=== PATIENT | male | born 1960 | race Caucasian/White ===

== ENCOUNTER → 2017-08-05 07:06 | Outpatient (CLI) | payer BC, SELFPAY ==
[2017-08-05 08:17] LABS: Alanine Aminotransferase 37 IU/L (21-72); Albumin 4.1 g/dL (3.5-5.0); Albumin Globulin Ratio 1.5 (1.0-2.8); Alkaline Phosphatase 49 U/L (38-126); Aspartate Aminotransferase 20 IU/L (17-59); BUN Creatinine Ratio 22.2 (6-22); Bilirubin Total 0.7 mg/dL (0.2-1.3); Blood Urea Nitrogen 20 mg/dL (9-20); Calcium 9.5 mg/dL (8.4-10.2); Carbon Dioxide 30 mmol/L (22-32); Chloride 103 mmol/L (98-107); Cholesterol 150 mg/dL (140-199); Estimated Glomerular Filt Rate > 60.0 mL/min (>60); Globulin 2.7 g/dL (1.7-4.1); Glucose 105 mg/dL (70-100); HDL Cholesterol 52 mg/dL (40-60); HEMOLYSIS < 15 (0-50); LDL Cholesterol Calculated 70 mg/dL (<100); Sodium 141 mmol/L (137-145); Total Protein 6.8 g/dL (6.3-8.2); Triglycerides 140 mg/dL (35-150)
== END ==
PROVIDERS: PCP Family Medicine; Visit Provider Family Medicine
DX: I25.10 Atherosclerotic heart disease of native coronary artery without angina pectoris (principal); Z12.5 Encounter for screening for malignant neoplasm of prostate
CPT/HCPCS: 36415; 80053; 80061; G0103

== ENCOUNTER → 2017-09-20 08:41 | Outpatient (CLI) | payer BC, SELFPAY ==
--- NOTE | 2017-09-20 | DI.RAD.S_ITS ---
PROCEDURE: XR CHEST 2V INDICATIONS: HEART DISEASE, PRE OP FOR SURGERY TECHNIQUE: 2 views of the chest were acquired. COMPARISON: [facility], , CHEST 2 VIEW, 08/17/2013, 13:33. FINDINGS: Surgical changes and devices: None. Lungs and pleura: No pleural effusions or pneumothorax. Lungs are clear. Mediastinum: Mediastinal contours are normal. Heart size is normal. Bones and chest wall: No suspicious bony abnormalities. Thoracic spondylosis. Soft tissues appear unremarkable. IMPRESSION: No acute cardiopulmonary abnormality Dictated by: Bethel Segovia M.D. on 09/20/2017 at 10:00 Approved by: Bethel Segovia M.D. on 09/20/2017 at 10:01
[2017-09-20 10:28] LABS: Hematocrit 41.7 % (41-53); Hemoglobin 14.6 g/dL (13.5-17.5); Mean Corpuscular Hemoglobin 31.8 PG (26-34); Mean Corpuscular Volume 90.8 fL (80-100); Platelet Count 189 X10^3/uL (150-400); Red Blood Cell Count 4.59 X10^6/uL (4.5-5.9); White Blood Cell Count 5.8 X10^3/uL (4.5-11.0)
[2017-09-20 10:48] LABS: HEMOLYSIS < 15 (0-50); Iron 94 ug/dL (49-181)
[2017-09-20 10:54] LABS: Alanine Aminotransferase 34 IU/L (21-72); Albumin 4.2 g/dL (3.5-5.0); Albumin Globulin Ratio 1.5 (1.0-2.8); Alkaline Phosphatase 47 U/L (38-126); Aspartate Aminotransferase 24 IU/L (17-59); Bilirubin Total 0.5 mg/dL (0.2-1.3); Blood Urea Nitrogen 18 mg/dL (9-20); Calcium 9.5 mg/dL (8.4-10.2); Carbon Dioxide 30 mmol/L (22-32); Chloride 102 mmol/L (98-107); Cholesterol 172 mg/dL (140-199); Estimated Glomerular Filt Rate > 60.0 mL/min (>60); Globulin 2.8 g/dL (1.7-4.1); Glucose 105 mg/dL (70-100); HDL Cholesterol 55 mg/dL (40-60); HEMOLYSIS < 15 (0-50); Hemoglobin A1C% w Est Avg Glu 5.1 % (4.0-6.0); LDL Cholesterol Calculated 87 mg/dL (<100); Potassium 3.9 mmol/L (3.4-5.1); Sodium 140 mmol/L (137-145); Triglycerides 152 mg/dL (35-150)
[2017-09-20 10:58] LABS: C-Reactive Protein Quant < 0.5 mg/dL (<1.0)
[2017-09-20 11:00] LABS: Percent Iron Saturation 33 % (20-50); Total Iron Binding Capacity 285 ug/dL (261-462); Transferrin 227 mg/dL (206-381)
[2017-09-20 11:20] LABS: Thyroid Stimulating Hormone 2.32 uIU/mL (0.47-4.68)
[2017-09-20 11:26] LABS: Ferritin 59.7 ng/mL (17.9-464)
[2017-09-20 11:56] LABS: Folate > 20.0 ng/mL (2.76-20.0); Vitamin B12 561 pg/mL (239-931)
[2017-09-22 15:33] LABS: C Peptide 3.46 ng/mL (0.80-3.85); Insulin Level Total 6.8 uIU/mL (2.0-19.6)
[2017-09-22 17:20] LABS: Zinc 112 mcg/dL (60-130)
[2017-09-23 20:26] LABS: Vitamin A 76 mcg/dL (38-98)
[2017-09-26 13:30] LABS: Vitamin B1 37
[2017-09-26 13:32] LABS: Testosterone, Total 540; Testosterone,Free 72.5
[2017-09-26 13:33] LABS: Sex Hormone Binding Globulin 34; Testosterone, Bioavailable 145.9
[2017-09-26 13:34] LABS: Albumin 4.4
== END ==
PROVIDERS: PCP Family Medicine; Visit Provider Surgery
DX: E66.01 Morbid (severe) obesity due to excess calories (principal); I10 Essential (primary) hypertension; E78.5 Hyperlipidemia, unspecified; I51.9 Heart disease, unspecified; G47.30 Sleep apnea, unspecified; J44.9 Chronic obstructive pulmonary disease, unspecified; I87.2 Venous insufficiency (chronic) (peripheral)
CPT/HCPCS: 36415; 71046; 80053; 80061; 82040; 82306; 82607; 82728; 82746; 83036; 83525; 83540; 83550; 84270; 84403; 84425; 84443; 84590; 84630; 84681; 85025; 85027; 86140

== ENCOUNTER → 2018-06-02 08:00 | Outpatient (CLI) | payer BC, SELFPAY ==
[2018-06-02 09:02] LABS: Hematocrit 39.8 % (41-53); Hemoglobin 13.9 g/dL (13.5-17.5); Mean Corpuscular Hemoglobin 30.9 PG (26-34); Mean Corpuscular Volume 88.5 fL (80-100); Platelet Count 190 X10^3/uL (150-400); Red Cell Distribution Width 13.7 % (11.6-14.8); White Blood Cell Count 3.4 X10^3/uL (4.5-11.0)
[2018-06-02 09:25] LABS: HEMOLYSIS < 15 (0-50); Iron 112 ug/dL (49-181)
[2018-06-02 09:31] LABS: Alanine Aminotransferase 34 IU/L (21-72); Albumin 4.3 g/dL (3.5-5.0); Albumin Globulin Ratio 1.8 (1.0-2.8); Alkaline Phosphatase 47 U/L (38-126); Aspartate Aminotransferase 25 IU/L (17-59); BUN Creatinine Ratio 31.4 (6-22); Bilirubin Total 0.6 mg/dL (0.2-1.3); Blood Urea Nitrogen 22 mg/dL (9-20); Calcium 9.6 mg/dL (8.4-10.2); Carbon Dioxide 30 mmol/L (22-32); Chloride 101 mmol/L (98-107); Cholesterol 144 mg/dL (140-199); Estimated Glomerular Filt Rate > 60.0 mL/min (>60); Globulin 2.4 g/dL (1.7-4.1); Glucose 97 mg/dL (70-100); HDL Cholesterol 47 mg/dL (40-60); HEMOLYSIS < 15 (0-50); LDL Cholesterol Calculated 76 mg/dL (<100); Sodium 139 mmol/L (137-145); Total Protein 6.7 g/dL (6.3-8.2); Triglycerides 107 mg/dL (35-150)
[2018-06-02 09:38] LABS: Percent Iron Saturation 43 % (20-50); Total Iron Binding Capacity 258 ug/dL (261-462); Transferrin 191 mg/dL (206-381)
[2018-06-02 09:40] LABS: Vitamin D 25 Hydroxy (D3) 36.8 ng/mL (30.0-100.0)
[2018-06-02 10:28] LABS: Vitamin B12 650 pg/mL (239-931)
[2018-06-05 14:00] LABS: Vitamin A 54 mcg/dL (38-98)
[2018-06-06 09:07] LABS: Sex Hormone Binding Globulin 78 nmol/L (22-77); Testosterone, Bioavailable 86.1 ng/dL (110.0-575.0); Testosterone, Total 690 ng/dL (250-1100); Testosterone,Free 44.7 pg/mL (46.0-224.0)
[2018-06-06 15:51] LABS: Zinc 96 mcg/dL (60-130)
[2018-06-06 16:47] LABS: Vitamin B1 142 nmol/L (78-185)
[2018-06-12 13:25] LABS: Albumin 4.2
== END ==
PROVIDERS: PCP Family Medicine; Visit Provider Surgery
DX: K21.9 Gastro-esophageal reflux disease without esophagitis (principal); I10 Essential (primary) hypertension; G47.30 Sleep apnea, unspecified; Z98.84 Bariatric surgery status; K91.2 Postsurgical malabsorption, not elsewhere classified; E88.81 Metabolic syndrome and other insulin resistance
CPT/HCPCS: 36415; 80053; 80061; 82040; 82306; 82607; 82728; 82746; 83036; 83540; 83550; 84270; 84403; 84425; 84590; 84630; 85027

== ENCOUNTER 2018-08-17 06:40 | Day surgery (SDC) | payer BC, SELFPAY ==
--- NOTE | 2018-08-17 | PATH_ITS ---
[facility] Accession Number: [id number] . 01 Material submitted: . rectum - RECTAL POLYP . 01 Clinical history: . SCREENING COLONOSCOPY . 02 Diagnosis: Biopsy, Rectal Polyp: Changes consistent with hyperplastic polyp. MRV/08/21/2018 . 02 Electronically signed: . Benny Bianchi MD, Pathologist NPI- [id number] . 01 Gross description: . RECTAL POLYP: Received in formalin is 1 fragment(s) of zuñiga, soft tissue measuring 0.5 x 0.3 x 0.3 cm submitted entirely in 1 cassette(s) /CKI /CKI . 02 Pathologist provided ICD-10: K62.1 . 02 CPT . 096091 Performed at: 01 [facility] [address] [place] [address], [place], [place] [id number] MD Gordon Solis MD Phone: [phone] Performed at: 02 [facility] [address] [place], [place] [id number] MD Nadia Nicolas MD Phone: [phone]
[2018-08-17 07:08] VITALS: BP 103/61; PULSE 48; RESP 15; TEMP 36.3; O2SAT 95; BMI 27.6
[2018-08-17] MEDS: SODIUM CHLORIDE 0.9% 1,000 ML 200 ML IV (07:19)
--- NOTE | 2018-08-17 07:44 | PM.HP.1 ---
History of Present Illness Date Patient Seen: 08/17/18 Time Patient Seen: 07:44 Chief complaint: [id number] SCREENING COLONOSCOPY Narrative: 58-year-old man seen and examined Health unchanged since recent clinic note Plan for screening colonoscopy today, last colonoscopy 3 years ago very poor prep hence short interval follow-up All questions answered Patient History Family & Social History Social History: household members spouse Tobacco & Substance use: Smoking Status Former smoker alcohol intake never Meds Home Medications Medication Instructions Recorded Confirmed Type aspirin 81 mg PO QDAY #0 05/27/16 08/17/18 History compression stocking,knee #12 each 08/21/17 07/18/18 Rx high,long length,large circum lisinopril 5 mg tablet 5 mg PO QDAY #60 tab 11/07/17 08/17/18 Rx atenolol 25 mg tablet 25 mg PO QDAY #90 tab 02/01/18 08/17/18 Rx rosuvastatin 40 mg tablet 40 mg PO DAILY #90 tab 04/17/18 08/17/18 Rx fekxepxl-vbk-cprgl acid 0.4 1 tab PO DAILY 07/18/18 08/17/18 History mg-lycopene 300 mcg-lutein 250 mcg tablet varenicline [Chantix Continuing 1 mg PO DAILY 08/17/18 08/17/18 History Month Box] Allergies Allergy/AdvReac Type Severity Reaction Status Date / Time codeine AdvReac Mild VOMITING Verified 08/17/18 07:04 Exam Vital Signs (past 8 hours): - 08/17/18 07:08 Temperature 97.4 F L Pulse Rate 48 L Respiratory Rate 15 Blood Pressure 103/61 Pulse Oximetry 95 Oxygen Delivery Method Room Air
[2018-08-17] MEDS: fentaNYL 250 MCG/5 ML INJ IV (08:35)
[2018-08-17] MEDS: MIDAZOLAM 5 MG/5 ML VIAL IV (08:36)
--- NOTE | 2018-08-17 08:36 | PM.OP.ENDO ---
Operative Date/Time/Diagnoses Date of procedure: 08/17/18 Time of procedure: 08:36 Pre-op diagnosis: Screening colonoscopy Post-op diagnosis: same Procedure & Clinicians Study performed: Screening colonoscopy -complete but with inadequate prep Same procedure as scheduled: Yes Indications: 58-year-old man 3 years out from last screening colonoscopy which had inadequate prep -had 6 hamartomatous polyps removed previously.. Recall was short interval due to poor prep prior Surgeon: Yomi Rowan Procedure Notes SCOAP/Timeout: complete Procedure in detail: Patient was brought to the endoscopy suite. A time-out was completed. He was sedated with a total of during the entire course the procedure with 8 mg of midazolam, 75 micro g of fentanyl. A digital rectal exam was performed -no lesions were identified the prostate was soft. 160 cm colonoscope was advanced through the folds of the rectum and colon to the cecum. There was significant amount of liquid stool remaining within the colon -multiple large lakes of it had to be suctioned clear to provide adequate visualization for forward progress of the scope. The cecum was identified via the appendiceal orifice and crows foot as well as a prominent ileocecal valve. The scope was then slowly withdrawn inspecting the mucosa. Due to the substantial amount of fine particulate matter adherent to the colon wall -significant amount of irrigation and suctioning was required to to provide reasonable visualization. However I was not able to visualize the entire wall to exclude all 5 mm polyps. The majority of the mucosa was however visualized in an adequate fashion. No lesions were identified other than a small sessile rectal polyp which was biopsied with cold biopsy forceps The scope was retroflexed at the anus no additional lesions were identified Prep as above was inadequate Patient confirmed he took entire prep, his last colonoscopy as stated above was also with inadequate prep. In the future I would double the amount of prep he undertakes and add an additional day Scope withdrawal time: 11 Sedation minutes: 41 Specimen(s): other (Rectal polyp x1) Complications: none Impression: Single rectal polyp Prep an adequate however Recommendations: Colonscopy in 3 years Plan for aftercare: PACU then Follow up: as needed Disposition: PACU
[2018-08-17 08:39] VITALS: BP 84/55; PULSE 41; RESP 15; TEMP 37.4; O2SAT 97
--- NOTE | 2018-08-17 08:43 | P.OP.ENDO_ITS ---
Operative Date/Time/Diagnoses Date of procedure: 08/17/18 Time of procedure: 08:36 Pre-op diagnosis: Screening colonoscopy Post-op diagnosis: same Procedure & Clinicians Study performed: Screening colonoscopy -complete but with inadequate prep Same procedure as scheduled: Yes Indications: 58-year-old man 3 years out from last screening colonoscopy which had inadequate prep -had 6 hamartomatous polyps removed previously.. Recall was short interval due to poor prep prior Surgeon: Yomi Rowan Procedure Notes SCOAP/Timeout: complete Procedure in detail: Patient was brought to the endoscopy suite. A time-out was completed. He was sedated with a total of during the entire course the procedure with 8 mg of midazolam, 75 micro g of fentanyl. A digital rectal exam was performed -no lesions were identified the prostate was soft. 160 cm colonoscope was advanced through the folds of the rectum and colon to the cecum. There was significant amount of liquid stool remaining within the colon - multiple large lakes of it had to be suctioned clear to provide adequate visualization for forward progress of the scope. The cecum was identified via the appendiceal orifice and crows foot as well as a prominent ileocecal valve. The scope was then slowly withdrawn inspecting the mucosa. Due to the substantial amount of fine particulate matter adherent to the colon wall - significant amount of irrigation and suctioning was required to to provide reasonable visualization. However I was not able to visualize the entire wall to exclude all 5 mm polyps. The majority of the mucosa was however visualized in an adequate fashion. No lesions were identified other than a small sessile rectal polyp which was biopsied with cold biopsy forceps The scope was retroflexed at the anus no additional lesions were identified Prep as above was inadequate Patient confirmed he took entire prep, his last colonoscopy as stated above was also with inadequate prep. In the future I would double the amount of prep he undertakes and add an additional day Scope withdrawal time: 11 Sedation minutes: 41 Specimen(s): other (Rectal polyp x1) Complications: none Impression: Single rectal polyp Prep an adequate however Recommendations: Colonscopy in 3 years Plan for aftercare: PACU then Follow up: as needed Disposition: PACU
[2018-08-17 08:44] VITALS: BP 87/47; PULSE 44; RESP 13; O2SAT 99
[2018-08-17 08:50] VITALS: BP 89/52; PULSE 43; RESP 15; TEMP 36.2; O2SAT 97
[2018-08-17 09:05] VITALS: BP 90/53; PULSE 45; RESP 15; TEMP 37.1; O2SAT 96
== END 2018-08-17 09:10 | disposition home or self-care (01) ==
LOC: ENDO 06:45
PROVIDERS: PCP Family Medicine; Visit Provider Surgery
PROC: 0DJD8ZZ Inspection of Lower Intestinal Tract, Via Natural or Artificial Opening Endoscopic (ICD-10-PCS; CPT 45378; principal; 2018-08-17 07:45)
DX: Z86.010 Personal history of colon polyps (principal); K62.1 Rectal polyp
CPT/HCPCS: 45380; 99152; 99153; J2250; J3010

== ENCOUNTER → 2019-07-20 08:39 | Outpatient (CLI) | payer BC, SELFPAY ==
[2019-07-20 09:35] LABS: Add Manual Diff / Slide Review NO; Basophils Absolute Auto 100 /uL (0-100); Basophils Percent Auto 1.1 % (0-2); Eosinophils Absolute Auto 200 /uL (0-450); Eosinophils Percent Auto 3.1 % (2-4); Hematocrit 42.7 % (41-53); Hemoglobin 14.9 g/dL (13.5-17.5); Lymphocytes Absolute Auto 1600 /uL (1100-4500); Lymphocytes Percent Auto 30.1 % (25-40); Mean Corpuscular HGB Conc 34.8 % (30-36); Mean Corpuscular Hemoglobin 31.5 PG (26-34); Mean Corpuscular Volume 90.6 fL (80-100); Monocytes Absolute Auto 600 /uL (0-900); Monocytes Percent Auto 10.2 % (3-14); Neutrophils Absolute Auto 3000 /uL (1500-7000); Neutrophils Percent Auto 55.5 % (50-75); Platelet Count 189 X10^3/uL (150-400); Red Blood Cell Count 4.72 X10^6/uL (4.5-5.9); Red Cell Distribution Width 13.1 % (11.6-14.8); White Blood Cell Count 5.5 X10^3/uL (4.5-11.0)
[2019-07-20 09:45] LABS: Alanine Aminotransferase 24 IU/L (<50); Albumin 4.2 g/dL (3.5-5.0); Albumin Globulin Ratio 1.6 (1.0-2.8); Alkaline Phosphatase 46 U/L (38-126); Aspartate Aminotransferase 27 IU/L (17-59); BUN Creatinine Ratio 14.3 (6-22); Bilirubin Total 0.8 mg/dL (0.2-1.3); Blood Urea Nitrogen 11 mg/dL (9-20); Calcium 9.7 mg/dL (8.4-10.2); Carbon Dioxide 30 mmol/L (22-32); Chloride 104 mmol/L (98-107); Cholesterol 137 mg/dL (140-199); Estimated Glomerular Filt Rate > 60.0 mL/min (>60); Globulin 2.7 g/dL (1.7-4.1); Glucose 93 mg/dL (70-100); HDL Cholesterol 66 mg/dL (40-60); HEMOLYSIS < 15 (0-50); LDL Cholesterol Calculated 51 mg/dL (<100); Potassium 4.3 mmol/L (3.4-5.1); Sodium 141 mmol/L (137-145); Total Protein 6.9 g/dL (6.3-8.2); Triglycerides 100 mg/dL (35-150)
[2019-07-20 10:16] LABS: Thyroid Stimulating Hormone 1.03 uIU/mL (0.47-4.68)
[2019-07-20 10:38] LABS: Creatinine Urine Random 201.8 mg/dL
[2019-07-20 10:44] LABS: Microalbumi Creatinin Ratio Ur 7.9 ug/mg CR (<30); Microalbumin Urine Random 1.6 mg/dL (0-1.6)
== END ==
PROVIDERS: PCP Family Medicine; Referring Provider Family Medicine; Visit Provider Family Medicine
DX: Z13.29 Encounter for screening for other suspected endocrine disorder (principal); Z12.5 Encounter for screening for malignant neoplasm of prostate; E78.5 Hyperlipidemia, unspecified; I10 Essential (primary) hypertension; I25.10 Atherosclerotic heart disease of native coronary artery without angina pectoris
CPT/HCPCS: 36415; 80053; 80061; 82043; 82570; 84153; 84443; 85025

== ENCOUNTER → 2019-11-06 11:20 | Outpatient (CLI) | payer BC, SELFPAY ==
[2019-11-07 09:28] LABS: COVID19 Sendout Not Detected (Not Detect)
== END ==
PROVIDERS: PCP Family Medicine; Visit Provider Physician Assistant
DX: J02.9 Acute pharyngitis, unspecified (principal); R05 Cough; R09.81 Nasal congestion; R50.9 Fever, unspecified
CPT/HCPCS: 87635